=== PATIENT | male | born 1975 | race Caucasian/White ===

== ENCOUNTER 2016-10-15 20:03 | Emergency (ER) ==
[2016-10-15] MEDS ORDERED: SOLU-MEDROL IM ONE (20:29)
[2016-10-15] MEDS ORDERED: DUONEB (A & A) INH ONE (20:30)
--- NOTE | 2016-10-15 20:31 | PROVIDER DOCUMENTATION ---
HPI-General Adult - General Chief Complaint: Cold Symptoms Stated Complaint: ASTHMA Time Seen by Provider: 10/15/16 20:21 Allergies/Adverse Reactions: Patient Allergies Allergy/AdvReac Type Severity Reaction Status Date / Time No Known Allergies Allergy Verified 10/15/16 20:12 Home Medications: Home Medication List Medication Instructions Recorded Confirmed Last Taken Type Albuterol 2.5MG/Ipratrop 0.5MG 1 each INH Q4-6H PRN PRN 10/15/16 10/15/16 19:30 History [Duoneb (A & A)] Azithromycin [Zithromax Z-Victorino] 250 mg PO DIRECTED #1 pkg 10/15/16 Unknown Rx Fluticasone/Salmet 250/50 INH 1 puff INH DAILY 10/15/16 10/15/16 10/14/16 09:00 History [Advair 250/50 Diskus] Prednisone 40 mg PO DAILY #3 tablet 10/15/16 Unknown Rx - History of Present Illness -Gen Adult Nature of Presenting Problems: Pt has asthma and has had cold symptoms for 3 days. Took a daniel [employer]FFER Review of Systems - Adult - REVIEW OF SYSTEMS - ADULT Constitutional: reports: no symptoms reported. denies: chills, fever, fatique, night sweats, weight gain, weight loss Eyes: reports: no symptoms reported. denies: discharge, dry eyes, decreased vision, blurred vision, double vision, eye pain, redness Ears, Nose, Mouth & Throat: reports: no symptoms reported. denies: ear discharge, ear pain, tinnitus, epistaxis, nose pain, mouth/dental pain, mouth swelling, hoarseness, throat pain, throat swelling Cardiovascular: reports: no symptoms reported. denies: chest pain, edema, irregular heart rate, orthopnea, palpitations, poor circulation, PND, syncope Respiratory: reports: see HPI, cough, shortness of breath, wheezing. denies: chronic cough, dyspnea on exertion, excessive sputum production, hemoptysis, pleurisy Gastrointestinal: reports: no symptoms reported. denies: abdominal pain, hematemesis, constipation, diarrhea, frequent heartburn, nausea, poor appetite, rectal bleeding, vomiting Genitourinary: reports: no symptoms reported. denies: dysuria, discharge, frequency, flank pain, hematuria, incontinence, urinary retention Musculoskeletal: reports: no symptoms reported. denies: bone pain, back pain, frequent leg cramps, joint swelling, muscle aches, muscle weakness, neck pain Integumentary: reports: no symptoms reported. denies: hives, hair loss, nail changes, rash, skin sores/ulcer, skin thickening Neurological: reports: no symptoms reported. denies: ataxia, dizziness/vertigo , headache/migraines, numbness, seizure, slurred speech, syncope, tremors Psychiatric: reports: no symptoms reported. denies: anxiety, alcohol/drug dependence, depression, insomnia, panic attacks, suicidal thoughts Endocrine: reports: no symptoms reported. denies: change in skin pigment, cold intolerance, increased hunger, increased thirst Hematologic/Lymphatic: reports: no symptoms reported. denies: blood clots, easy bruising, lymphedema, prolonged bleeding, swollen lymph nodes, transfusions Allergic/Immunologic: reports: no symptoms reported. denies: allergic reactions , asthma, eczema, hay fever, hives, positive PPD, urticaria All Other Systems: Reviewed and Negative Past History - Adult - PAST MEDICAL HISTORY-ADULT Review of Records: reports: Old Records Reviewed, Nursing Assessment Review, Medications Reviewed, Social history reviewed & non-contributory. Major Childhood Illnesses: reports: denies history Cardiovascular: reports: denies history, HTN Respiratory: reports: asthma Gastrointestinal: reports: denies history Obstetrical/Gynecological: reports: denies history Genitourinary: reports: denies history Musculoskeletal: reports: denies history Neurological: reports: denies history Endocrine/Immune: reports: denies history Other Conditions: reports: denies history - PRIOR SURGERIES/PROCEDURES Surgical/Procedure History: reports: reviewed, not pertinent - PRIOR HOSPITALIZATIONS Prior Hospitalizations: reports: none - IMMUNIZATION STATUS Childhood Immunizations: See Nurse Assessment Flu Vaccine: See Nurse Assessment - FAMILY HISTORY Family History: reviewed, not pertinent - SOCIAL HISTORY Smoking: denies Substance Use: none/never Alcohol Use Frequency: never Living Situation: family Physical Exam-General - PHYSICAL EXAM-ADULT Initial Vital Signs Reviewed: Yes - CONSTITUTIONAL General Appearance: appears well, alert, no apparent distress - EYES Eyes: PERRL/EOMI, pink conjunctivae - HEAD, EARS, NOSE, MOUTH & THROAT HENMT: normocephalic/atraumatic, moist mucous membranes, normal ENT inspection, TMs normal - NECK Neck: non-tender, full range of motion - RESPIRATORY Respiratory: chest non-tender, lungs clear, normal breath sounds, no pleuratic chest pain, no respiratory distress - CARDIOVASCULAR Cardiovascular: normal peripheral pulses, regular rate, rhythm - GASTROINTESTINAL (ABDOMEN) Abdominal Exam: normal bowel sounds, non tender, soft - MUSCULOSKELETAL Back Exam: normal inspection, no CVA tenderness Extremity: normal range of motion, non-tender, normal gait, normal inspection - SKIN Integumentary: normal color, normal turgor, warm/dry - NEUROLOGIC Neurologic: washer blanket II-XII nml as tested, grossly normal - PSYCHIATRIC Psych/Mental Status: normal mood/affect, normal thought content, normal thought process, oriented x 3 Progress - PLAN OF CARE/RESULTS Progress/Plan/Lab Results: Orders Category Date Time Status cxr [CHEST-2 VIEWS] [RAD] Stat Exams 10/15/16 20:29 Taken Flu Swab [INFLUENZA SCREEN A/B] Stat Lab 10/15/16 20:05 Completed Albuterol 2.5MG/Ipratrop 0.5MG [Duoneb (A & A)] Med 10/15/16 20:30 Discontinued 3 ml INH NOW ONE Hydrocodone/Chlorphen Polis [Tussionex Liquid] Med 10/15/16 20:32 Discontinued 5 ml PO NOW ONE Methylprednisolone Sod Succ [Solu-Medrol] Med 10/15/16 20:29 Discontinued 125 mg IM NOW ONE Aerosol Treatments Routine Oth 10/15/16 20:30 Active Aerosol Treatments Stat Oth 10/15/16 20:30 Active Vital Signs - 24 hr 10/15/16 20:06 Temperature 98.4 F Pulse Rate 116 H Respiratory 20 Rate Blood Pressure 154/90 O2 Sat by Pulse 100 Oximetry - XRAY 1 XRAY Study: Chest XRAY Interpretation: mildly elevated right hemidiaphram (hcb) Departure - Departure Time of Disposition Order: 21:02 DIAGNOSIS: URI (upper respiratory infection) Qualifiers: URI type: unspecified URI Qualified Code(s): J06.9 - Acute upper respiratory infection, unspecified Disposition: HOME 01 Certified Medical Emergency: Emergent Condition: Good Additional Instructions: follow up with PCP ED Follow Up Instructions: You have been treated by a care provider in the Emergency Department. These instructions are being provided to you so you can have an understanding of how to care for yourself upon discharge. Upon discharge from the Emergency Department, you are responsible for making arrangements for follow-up care by a physician of your choice. Take all prescribed medications as directed. Return to the Emergency Department immediately for any new or worsening symptoms. You may call the Physician Referral phone number at [phone] to obtain a list of Physicians who are taking new patients. Prescriptions: Prednisone 40 mg PO DAILY #3 tablet Azithromycin [Zithromax Z-Victorino] 250 mg PO DIRECTED #1 pkg Referrals: Jay Ruano MD [Primary Care Provider] - Instructions: Upper Respiratory Infection, Adult, [id number] Attestation - Physician/ MARIAH Attestation Patient care was provided by Advanced Practice Provider:: Yes Advanced Practice Provider:: Ej Hernandez Advanced Practice Provider documentation review:: The Mid-level provider documentation, treatment plan and medical decision making was reviewed by the physician who agrees with all treatment and medical decision making by the MLP.
[2016-10-15] MEDS ORDERED: TUSSIONEX LIQUID PO ONE (20:32)
[2016-10-15 22:09] VITALS: BP 140/75
--- NOTE | 2016-10-16 08:51 | Diag Imaging Result Document ---
PROCEDURE NAME: CHEST-2 VIEWS - 10/15/2016 FRONTAL AND LATERAL CHEST, TWO VIEWS: COMPARISON: 09/15/2014. FINDINGS: Minimal increased markings in the left base consistent with fibrosis. These were present on the prior exam and are unchanged. The lungs are otherwise well expanded. The heart is not enlarged. The vessels are not distended. No pneumonia. No pleural effusions. IMPRESSION: No acute abnormality.
== END 2016-10-15 22:09 | disposition home or self-care (01) ==
LOC: ED 20:03
DX: J06.9 Acute upper respiratory infection, unspecified (principal); R05 Cough; R06.02 Shortness of breath; R06.2 Wheezing; I10 Essential (primary) hypertension; J45.909 Unspecified asthma, uncomplicated; Z79.51 Long term (current) use of inhaled steroids
CPT/HCPCS: 71020; 87804; J2930